=== PATIENT | female | born 2000 | race Two or more races ===

== ENCOUNTER 2024-08-14 16:39 | Emergency (ER) | payer OTHER ==
[~2024-08-14] VITALS: Ht 160 cm; Wt 48.5 kg
[2024-08-14 18:00] LABS: HEMATOCRIT 35.1 % (36.0-45.00); MEAN CELL VOLUME 88.4 fL (80.00-100.00); MEAN CORPUSCULAR HEMOGLOBIN 30.2 pg (27.00-32.0); MEAN CORPUSCULAR HGB CONC 34.2 g/dl (32.0-36.0); PLATELET COUNT 356 K/uL (150-450); RED BLOOD COUNT 3.98 M/uL (4.00-6.00); RED CELL DISTRIBUTION WIDTH 13.4 % (11.5-14.5)
[2024-08-14 18:35] LABS: PH,URINE 5.5 (5.0-8.0); URINE APPEARANCE Clear; URINE BILIRRUBIN Negative (NEGATIVE); URINE BLOOD Large; URINE COLOR Dark Yellow; URINE GLUCOSE Negative (NEGATIVE); URINE LEUKOCYTE Small; URINE NITRATE Negative; URINE PROTEIN 30 (NEGATIVE)
[2024-08-14 18:39] LABS: URINE BACTERIA 898.3 uL (0.0-1933); URINE EPITHELIAL CELLS 39.4 uL (0.0-38.8); URINE RBC 9.5 uL (0.0-20.8); URINE WBC 97.1 uL (0.0-23.2)
[2024-08-14 19:04] LABS: URINE KETONE 80 (NEGATIVE)
[2024-08-14 19:15] LABS: URINE CAST 0.73 uL (0.0-1.40)
[2024-08-14 19:16] LABS: URINE CRYSTALS FEW /HPF; URINE MUCUS HEAVY
[2024-08-14] MEDS ORDERED: AMOX1TAB5 PO (20:33)
[2024-08-14] MEDS ORDERED: PEPCID AC20 MG PO (20:33)
== END 2024-08-14 22:18 | disposition home or self-care (01) ==
LOC: ER 16:41
PROVIDERS: General Practice
DX: O20.8 Other hemorrhage in early pregnancy (principal); Z3A.01 Less than 8 weeks gestation of pregnancy

== ENCOUNTER 2025-03-31 06:36 | Inpatient (IN) | payer OTHER ==
[~2025-03-31] VITALS: Ht 160 cm; Wt 2.7 kg
[~2025-03-31 06:36] MED LIST: AMOX1TAB5 PO; PEPCID AC20 MG PO
[2025-03-31] MEDS ORDERED: OXYTOCIN 500 ML IV ONE (06:45)
[2025-03-31] MEDS ORDERED: RINGERS SOLUTION,LACTATED 1,000 ML IV SCH (06:45)
[2025-03-31 07:04] VITALS: BP 106/69
[2025-03-31 07:10] VITALS: BP 106/69
[2025-03-31] MEDS ORDERED: PRENATAL + DHA1 EAC1 PO (08:30)
[2025-03-31 08:35] LABS: URINE APPEARANCE Clear; URINE BACTERIA 925.1 uL (0.0-1933); URINE BILIRRUBIN Negative (NEGATIVE); URINE BLOOD Negative; URINE COLOR Yellow; URINE EPITHELIAL CELLS 15.3 uL (0.0-38.8); URINE GLUCOSE Negative (NEGATIVE); URINE KETONE Negative (NEGATIVE); URINE LEUKOCYTE Small; URINE NITRATE Negative; URINE PROTEIN Negative (NEGATIVE); URINE UROBILINOGEN 0.2 E.U./dl; URINE WBC 24.7 uL (0.0-23.2)
[2025-03-31 08:36] LABS: BASO % 0.4 % (0.1-1.2); EOS # 0.14 (0.04-0.54); EOS % 1.5 % (0.7-7.0); LYMPH # 1.85 (1.18-3.74); LYMPH % 19.3 % (19.3-53.1); MEAN PLATELET VOLUME 11.80 fl (9.4-12.4); MONO # 0.58 (0.24-0.82); MONO % 6.0 % (4.7-12.5); NEUT # 6.90 (1.56-6.13); NEUT % 71.9 % (34.0-71.1); RED CELL DISTRIBUTION WIDTH 13.2 % (11.6-14.4)
[2025-03-31 08:38] LABS: URINE CAST 0.00 uL (0.0-1.40); URINE RBC 1.9 uL (0.0-20.8)
[2025-03-31 08:45] LABS: INR < 0.93
[2025-03-31 08:51] LABS: ALT/SGPT 24.0 U/L (12-78); AST/SGOT 22.0 U/L (15-37); BILIRUBIN TOTAL 0.32 mg/dL (0.3-1.2); BUN CREA RATIO 14.0 (7.0-25.0); CREATININE SERUM 0.57 mg/dL (0.55-1.02); GFR 129.23; GLOBULINA 3.8 G/DL (2.4-3.5); GLUCOSE FASTING 69.0 mg/dL (65-100); OSMOLALITY SERUM 276.0 MOSM/KG (275-295)
[2025-03-31 12:47] VITALS: BP 117/79
[2025-03-31] MEDS ORDERED: MORPHINE SULFATE 4 MG/ML CARTRIDGE IV ONE (14:00)
[2025-03-31 15:40] VITALS: BP 124/77
[2025-03-31] MEDS ORDERED: CEFAZOLIN SODIUM 1,000 MG VIAL IV SCH (17:30)
[2025-03-31] MEDS ORDERED: MORPHINE SULFATE 4 MG/ML CARTRIDGE IV PRN (18:15)
[2025-03-31] MEDS ORDERED: OXYTOCIN 1,000 ML IV SCH (18:15)
[2025-03-31] MEDS ORDERED: MORPHINE SULFATE 4 MG/ML VIAL IV ONE (18:30)
[2025-03-31] MEDS ORDERED: ERYTHROMYCIN BASE OPHT 1GM EACH TUBE OP ONE (19:00)
[2025-03-31] MEDS ORDERED: OXYTOCIN 10 UNITS/ML VIAL IV ONE (19:00)
[2025-03-31 22:26] VITALS: BP 112/61
[2025-04-01] VITALS: BP 113/71
[2025-04-01 10:06] VITALS: BP 108/71
[2025-04-01] MEDS ORDERED: OxyCODONE HCL 5 MG TABLET (ROXICODONE) PO PRN (10:30)
[2025-04-01 11:53] LABS: BASO % 0.2 % (0.1-1.2); EOS # 0.03 (0.04-0.54); EOS % 0.2 % (0.7-7.0); LYMPH # 1.36 (1.18-3.74); LYMPH % 8.1 % (19.3-53.1); MEAN PLATELET VOLUME 11.50 fl (9.4-12.4); MONO # 0.87 (0.24-0.82); MONO % 5.2 % (4.7-12.5); NEUT # 14.49 (1.56-6.13); NEUT % 85.7 % (34.0-71.1); RED CELL DISTRIBUTION WIDTH 13.5 % (11.6-14.4)
[2025-04-01 16:23] VITALS: BP 98/72
[2025-04-02] VITALS: BP 98/64
[2025-04-02 08:00] VITALS: BP 115/74
== END 2025-04-02 14:00 | disposition home or self-care (01) | DRG 788 ==
LOC: OB/GYN 06:36 → LDR 06:36 → O/R 17:44 → OB/GYN 19:48
PROVIDERS: Obstetrics & Gynecology; ADMIT Obstetrics & Gynecology Gynecology; ATTEND Obstetrics & Gynecology Gynecology
PROC: 4A1HXCZ Monitoring of Products of Conception, Cardiac Rate, External Approach (ICD-10-PCS; 2025-03-31)
PROC: 10D00Z1 Extraction of Products of Conception, Low, Open Approach (ICD-10-PCS; principal; 2025-03-31 18:40)
DX: O33.8 Maternal care for disproportion of other origin (principal); Z3A.39 39 weeks gestation of pregnancy; Z37.0 Single live birth